=== PATIENT | female | born 1985 | race African-American/Black ===

== ENCOUNTER 2021-11-20 13:53 | Emergency (ER) | payer MEDICAID, OTHER ==
[~2021-11-20] VITALS: Ht 167.6 cm; Wt 70.0 kg
[2021-11-20 15:13] VITALS: BP 144/90
[2021-11-20] MEDS ORDERED: IBUPROFEN 800 MG TAB PO ONE (15:45)
[2021-11-20] MEDS ORDERED: IBUP800T27 PO (15:46)
== END 2021-11-20 16:02 | disposition home or self-care (01) ==
LOC: ER 13:53
DX: S62.306A Unspecified fracture of fifth metacarpal bone, right hand, initial encounter for closed fracture (principal); W21.01XA Struck by football, initial encounter; Y93.89 Activity, other specified; Y92.89 Other specified places as the place of occurrence of the external cause; Y99.8 Other external cause status
CPT/HCPCS: 29125; 73130